=== PATIENT | female | born 1985 | race Caucasian/White ===

== ENCOUNTER 2020-12-23 04:38 | Emergency (ER) | payer MEDICAID, SELFPAY ==
--- NOTE | ~2020-12-23 | XR_ITS ---
EXAMINATION: XR CHEST CLINICAL INFORMATION: Chest pain COMPARISON: 05/04/2019 TECHNIQUE: Frontal view of the chest was obtained. FINDINGS: Lung volumes are symmetric. No focal consolidation is seen. No evidence of pneumothorax, pleural effusion, or pulmonary edema. The cardiomediastinal contour is unremarkable. No acute osseous findings are seen. XR/XR chest 1V IMPRESSION: No acute cardiopulmonary findings.
[2020-12-23 04:46] VITALS: BP 117/70; PULSE 75; RESP 16; TEMP 36.8; O2SAT 99; BMI 29.0
[2020-12-23 04:54] VITALS: PULSE 78
--- NOTE | 2020-12-23 04:56 | ECG_ITS ---
Test Reason : CHEST PAIN Blood Pressure : / mmHG Vent. Rate : 085 BPM Atrial Rate : 085 BPM P-R Int : 148 ms QRS Dur : 078 ms QT Int : 382 ms P-R-T Axes : 051 069 049 degrees QTc Int : 454 ms Normal sinus rhythm Normal ECG When compared to the previous EKG of No significant changes seen Referred By: Katherine Chandler Electronically Signed By:FRANCK QUINTERO MD
[2020-12-23 05:11] LABS: Basophils Percent Auto 0.2 % (0-2); Eosinophils Absolute Auto 0.2 X10*3/uL (0.0-0.4); Eosinophils Percent Auto 2.9 % (0-4); Hematocrit 37.5 % (37-47); Hemoglobin 13.2 g/dl (12.0-16.0); Imm Gran Abs Auto 0.02 X10*3/uL (0.00-0.03); Imm Gran Pct Auto 0.3 % (0.0-0.4); Lymphocytes Absolute Auto 1.9 X10*3/uL (1.2-4.9); Lymphocytes Percent Auto 31.8 % (20-40); MANUAL DIFF FLAG NO; Mean Corpuscular HGB Conc 35.2 g/dl (31.0-35.0); Mean Corpuscular Hemoglobin 30.9 pg (27.0-33.0); Mean Corpuscular Volume 87.8 fL (80-98); Mean Platelet Volume 10.5 fL (9.4-12.3); Monocytes Absolute Auto 0.7 X10*3/uL (0.1-1.2); Monocytes Percent Auto 11.8 % (2-11); Neutrophils Absolute Auto 3.1 X10*3/uL (2.0-8.3); Platelet Count 280 X10*3/uL (160-400); Red Blood Count 4.27 X10*6/uL (4.20-5.50); Red Cell Distribution Width 11.8 % (11.0-16.0); White Blood Count 5.9 X10*3/uL (4.8-10.8)
--- NOTE | 2020-12-23 05:14 | ED.CHESTPAIN ---
HPI - Chest Pain General Chief Complaint: Chest Pain Stated Complaint: chest pain Time Seen by Provider: 12/23/20 05:07 Source: patient Mode of arrival: ambulatory Limitations: no limitations History of Present Illness HPI narrative: Patient comes emergency room complaining of substernal chest pressure. Patient states at 19:00 she drank very concentrated coffee, states she has been shaky since then. Patient went to sleep and woke up around 1 in the morning with substernal pressure, nonradiating. Patient denies nausea vomiting and diarrhea, no shortness of breath. Related Data Allergies Allergy/AdvReac Type Severity Reaction Status Date / Time shellfish derived Allergy Severe ANAPHYLAXIS Unverified 04/25/20 18:38 [SHELLFISH DERIVED] seafood Allergy Unknown SOB, Uncoded 12/06/19 00:00 throat swelling Review of Systems Review of Systems: Constitutional : No Weight loss, No Fever, No Chills, No Night Sweats, No Fatigue, No Malaise, feeling jittery ENT/Mouth : No Hearing loss, No Ear Pain, No Nasal Congestion, No Sinus Pain, No Hoarseness, No sore throat, No Rhinorrhea, No Swallowing Difficulty Eyes: No Eye Pain, No Swelling, No Redness, No Foreign Body, No Discharge, No Vision Changes Cardiovascular : Complaining of substernal nonradiating chest pressure, No SOB, No Dyspnea on Exertion, No Orthopnea, No Edema, No Palpitations Respiratory : No Cough, No Sputum, No Wheezing, No Smoke Exposure, No Dyspnea Gastrointestinal : No Nausea, No Vomiting, No Diarrhea, No Constipation, No abdominal Pain, No Hematochezia, No Melena Genitourinary : no irregular bleeding, No Dysuria, No Urinary Frequency, No Hematuria, No Urinary Incontinence, No Urgency, No Flank Pain, No Urinary Flow Changes, No Hesitancy Musculoskeletal : No joint pain, No Myalgias, No Joint Swelling Skin : No Skin Lesions, No rash Neuro : No Weakness, No Numbness, No Paresthesias, No Loss of Consciousness, No Dizziness, No Headache Psych : No Anxiety/Panic, No Depression, No SI/HI/AH/VH, No Social Issues, Heme/Lymph: No Bruising, No Bleeding,No Lymphadenopathy Endocrine : No Polyuria, No Polydipsia, No Temperature Intolerance PMFSH Past Medical History Medical History (Updated 12/23/20 @ 05:44 by Katherine Chandler MD) Asthma Social History Social History Alcohol intake: never Smoking Status: Never smoker Use of substances other than those prescribed or required for medical reasons: No Advance Directives: No Advance Directives Information Provided: No Patient : No Physical Exam Vital Signs: Vital Signs: Last Vital Signs Temp 98.3 F 12/23/20 04:46 Pulse 75 12/23/20 04:46 Resp 16 12/23/20 04:46 BP 117/70 12/23/20 04:46 Pulse Ox 99 12/23/20 04:46 Body Mass Index 29.0 Appearance: Alert. Oriented X3. No acute distress. Eyes: Pupils equal, round and reactive to light. ENT: Pharynx normal. Neck: Normal inspection. Neck supple. No lymph nodes noted. No crepitus CVS: Normal heart rate and rhythm. Pulses normal. Normal S1 and S2, reproducible chest pain on palpation on the suprasternal border. Respiratory: No respiratory distress. Breath sounds normal. No Wheezing. No rales Abdomen: Soft and nontender. No rigidity. No distention. good BS x4 Skin: Skin warm and dry. Normal skin color. Normal skin turgor. Extremities: No lower extremity edema. No lower extremity edema. No Lacerations. No Rash Neuro: Oriented X 3. No motor deficit. No sensory deficit. Moving all extermities. No slurred speech. Course Course Course Narrative: I discussed with the patient her symptoms and likely secondary to the high dose of caffeine she used. Chest x-ray within normal limits, EKG normal troponin negative. MDM - Chest Pain Lab Data Result diagrams: 12/23/20 05:06 12/23/20 05:06 Labs: Lab Results 12/23/20 12/23/20 12/23/20 Range/Units 05:06 05:06 05:06 WBC 5.9 (4.8-10.8) X10*3/uL RBC 4.27 (4.20-5.50) X10*6/uL Hgb 13.2 (12.0-16.0) g/dl Hct 37.5 (37-47) % MCV 87.8 (80-98) fL MCH 30.9 (27.0-33.0) pg MCHC 35.2 H (31.0-35.0) g/dl RDW 11.8 (11.0-16.0) % Plt Count 280 (160-400) X10*3/uL MPV 10.5 (9.4-12.3) fL Immature Gran % (Auto) 0.3 (0.0-0.4) % Neut % (Auto) 53.0 (45-73) % Lymph % (Auto) 31.8 (20-40) % [place] % (Auto) 11.8 H (2-11) % Eos % (Auto) 2.9 (0-4) % Baso % (Auto) 0.2 (0-2) % Lymph # (Auto) 1.9 (1.2-4.9) X10*3/uL [place] # (Auto) 0.7 (0.1-1.2) X10*3/uL Eos # (Auto) 0.2 (0.0-0.4) X10*3/uL Baso # (Auto) 0.0 (0.0-0.2) X10*3/uL Abs Immat Gran (auto) 0.02 (0.00-0.03) X10*3/uL Absolute Neuts (auto) 3.1 (2.0-8.3) X10*3/uL Absolute Nucleated RBC 0.000 (0.0-0.012) X10*3/uL Nucleated RBC % (auto) 0.0 (0.0-0.2) /100WBC Hold Blue Top SEE NOTE Sodium 137 (135-145) mmol/L Potassium 4.5 (3.3-5.1) mmol/L Chloride 104 (96-108) mmol/L Carbon Dioxide 26 (22-29) mmol/L Anion Gap 12 (12-20) BUN 7 L (9-16) mg/dL Creatinine 0.72 (0.5-1.4) mg/dL Estim Creat Clear Calc 99.4 Estimated GFR > 60 Random Glucose 104 (60-115) mg/dL Calcium 9.2 (8.4-10.2) mg/dL Troponin I High Sens (<3.5-17.0) ng/L 12/23/20 Range/Units 05:06 WBC (4.8-10.8) X10*3/uL RBC (4.20-5.50) X10*6/uL Hgb (12.0-16.0) g/dl Hct (37-47) % MCV (80-98) fL MCH (27.0-33.0) pg MCHC (31.0-35.0) g/dl RDW (11.0-16.0) % Plt Count (160-400) X10*3/uL MPV (9.4-12.3) fL Immature Gran % (Auto) (0.0-0.4) % Neut % (Auto) (45-73) % Lymph % (Auto) (20-40) % [place] % (Auto) (2-11) % Eos % (Auto) (0-4) % Baso % (Auto) (0-2) % Lymph # (Auto) (1.2-4.9) X10*3/uL [place] # (Auto) (0.1-1.2) X10*3/uL Eos # (Auto) (0.0-0.4) X10*3/uL Baso # (Auto) (0.0-0.2) X10*3/uL Abs Immat Gran (auto) (0.00-0.03) X10*3/uL Absolute Neuts (auto) (2.0-8.3) X10*3/uL Absolute Nucleated RBC (0.0-0.012) X10*3/uL Nucleated RBC % (auto) (0.0-0.2) /100WBC Hold Blue Top Sodium (135-145) mmol/L Potassium (3.3-5.1) mmol/L Chloride (96-108) mmol/L Carbon Dioxide (22-29) mmol/L Anion Gap (12-20) BUN (9-16) mg/dL Creatinine (0.5-1.4) mg/dL Estim Creat Clear Calc Estimated GFR Random Glucose (60-115) mg/dL Calcium (8.4-10.2) mg/dL Troponin I High Sens < 3.5 (<3.5-17.0) ng/L Imaging Data Chest x-ray: Radiologist's impression: FINDINGS: Lung volumes are symmetric. No focal consolidation is seen. No evidence of pneumothorax, pleural effusion, or pulmonary edema. The cardiomediastinal contour is unremarkable. No acute osseous findings are seen. XR/XR chest 1V IMPRESSION: No acute cardiopulmonary findings. ECG Data ECG #1: Attestation: I personally reviewed and interpreted this ECG as follows: (Sinus rhythm 85, no ST segment depression or elevation, no T-wave inversion, QTC 454) Scores Heart Score History: -0- slightly suspicious ECG: -0- normal Age: -0- < or = 45 Risk factory: -0- no risk factors known Troponin: -0- < or = normal limit Score: 0 Risk: 1.7% Discharge Plan Discharge Clinical Impression: Atypical chest pain Patient Disposition: Home, Self-Care Instructions: Chest Pain (ED) Additional Instructions: Please follow-up with your primary care physician tomorrow. If you have any worsening or new symptoms, please return to the emergency room or call 911
[2020-12-23 05:30] LABS: Anion Gap 12 (12-20); Blood Urea Nitrogen 7 mg/dL (9-16); Calcium 9.2 mg/dL (8.4-10.2); Carbon Dioxide 26 mmol/L (22-29); Chloride 104 mmol/L (96-108); Creatinine Clr Calc Pharmacy 99.4; Estimated Glomerular Filt Rate > 60; Glucose Random 104 mg/dL (60-115); Potassium 4.5 mmol/L (3.3-5.1); Sodium 137 mmol/L (135-145)
[2020-12-23 05:34] LABS: Troponin-I High Sensitivity < 3.5 ng/L (<3.5-17.0)
[2020-12-23] MEDS: Aspirin Enteric Coated 325 MG TABLET.DR PO (05:43)
== END 2020-12-23 05:49 | disposition home or self-care (01) ==
PROVIDERS: Emergency Provider Emergency Medicine; PCP Family Medicine
DX: R07.89 Other chest pain (principal)
CPT/HCPCS: 36415; 71045; 80048; 84484; 85025; 93005; 99284

== ENCOUNTER 2021-01-08 19:52 | Emergency (ER) | payer MEDICAID, SELFPAY ==
[2021-01-08 21:04] VITALS: BP 108/65; PULSE 71; RESP 16; TEMP 36.9; O2SAT 100; BMI 26.0
--- NOTE | 2021-01-08 22:46 | ED.SKABFB ---
HPI - Skin/Abscess/Foreign Bdy General Chief complaint: Allergic Reaction Stated complaint: hand swelling Time Seen by Provider: 01/08/21 22:44 Source: patient and family Limitations: language barrier (Daughter translated) History of Present Illness HPI narrative: Patient is a 35-year-old Ivorian-speaking female with no significant past medical history who presents with pain and redness on her left hand. She states she has filled acrylic nail solution on it earlier today and it has become painful and swollen. She states she washed it right away but it still hurts. She says is happen once a few years ago and she thought she was allergic to the solutions so she did not use it for a few years and then used it again today and had a similar reaction. She denies any throat tingling, shortness of breath or difficulty breathing. Related Data Allergies Allergy/AdvReac Type Severity Reaction Status Date / Time shellfish derived Allergy Severe ANAPHYLAXIS Verified 01/08/21 21:07 [SHELLFISH DERIVED] seafood Allergy Unknown SOB, Uncoded 01/08/21 21:07 throat swelling Review of Systems Review of Systems: Yes all other systems are reviewed and are negative PENDING SALE TO [facility] Past Medical History Medical History Asthma Social History Social History Alcohol intake: never Advance Directives: No Advance Directives Information Provided: Yes Physical Exam Vital Signs: Vital Signs: Last Vital Signs Temp 98.4 F 01/08/21 21:04 Pulse 71 01/08/21 21:04 Resp 16 01/08/21 21:04 BP 108/65 01/08/21 21:04 Pulse Ox 100 01/08/21 21:04 Body Mass Index 26.0 Const: General: cooperative, healthy appearing, comfortable and no acute distress Nutritional Appearance: average body habitus Orientation/consciousness: patient oriented x3 Eyes: General: appearance normal, both eyes and all related structures Skin: Other: Right hand, volar and ulnar side is erythematous, slightly swollen, not warm, no signs of infection. Patient is NVI to the 5th digit, full ROM. No ecchymosis. Neuro: General: patient oriented x3 Course Course Course Narrative: Discussed with Dr. barba, she recommended Vaseline, keep clean and follow up with PCP. Applied Vaseline and dressed wound for patient, gave her supplies to keep it covered when there is Vaseline on it. Answered all of patient's questions. Discharge Plan Discharge Clinical Impression: Chemical burn Patient Disposition: Home, Self-Care Instructions: Chemical Skin Burn (ED) Additional Instructions: Please keep the area clean, use Vaseline to keep the area moist, you can take Advil for the pain. Please be sure to follow-up your PCP next week. Print Language: Ivorian
== END 2021-01-08 23:00 | disposition home or self-care (01) ==
PROVIDERS: Emergency Provider Student in an Organized Health Care Education/Training Program; PCP Family Medicine
DX: T65.891A Toxic effect of other specified substances, accidental (unintentional), initial encounter (principal); T23.59 Corrosion of first degree of multiple sites of wrist and hand; T32.0 Corrosions involving less than 10% of body surface; Y93.E8 Activity, other personal hygiene; Y92.039 Unspecified place in apartment as the place of occurrence of the external cause; Y99.9 Unspecified external cause status
CPT/HCPCS: 99283

== ENCOUNTER 2021-11-03 09:39 | Emergency (ER) | payer MEDICAID, SELFPAY ==
[2021-11-03 10:23] VITALS: BP 124/77; PULSE 82; RESP 19; TEMP 36.8; O2SAT 100
[2021-11-03 10:51] VITALS: BMI 24.5
--- NOTE | 2021-11-03 11:03 | ECG_ITS ---
Test Reason : dizziness Blood Pressure : / mmHG Vent. Rate : 077 BPM Atrial Rate : 077 BPM P-R Int : 150 ms QRS Dur : 078 ms QT Int : 394 ms P-R-T Axes : 009 -01 020 degrees QTc Int : 445 ms Normal sinus rhythm Normal ECG When compared with ECG of 23-DEC-2020 04:42, Questionable change in QRS axis Referred By: Generic ED Physician Electronically Signed By:KIRSTIN WILLIAMSON
--- NOTE | 2021-11-03 11:37 | ED_ITS ---
HPI - General Adult General Chief complaint: Dizziness Stated complaint: headache shakes Time Seen by Provider: 11/03/21 10:38 Source: patient Mode of arrival: ambulatory Limitations: no limitations History of Present Illness HPI narrative: Patient comes to the emergency room complaining of a near syncopal episode. Earlier this morning, patient was working at [email or web address]. Patient states that she had a sudden episode all lightheadedness, feeling that she was going to pass out, states that she had a sensation that the back of her head was shaking. Patient denies headache, no loss of consciousness. Patient states that this episode lasted for about 2 minutes and then self-resolved. Related Data Allergies Allergy/AdvReac Type Severity Reaction Status Date / Time shellfish derived Allergy Severe ANAPHYLAXIS Verified 01/08/21 21:07 [SHELLFISH DERIVED] seafood Allergy Unknown SOB, Uncoded 01/08/21 21:07 throat swelling Review of Systems Review of Systems: Constitutional : No Weight loss, No Fever, No Chills, No Night Sweats, No Fatigue, No Malaise ENT/Mouth : No Hearing loss, No Ear Pain, No Nasal Congestion, No Sinus Pain, No Hoarseness, No sore throat, No Rhinorrhea, No Swallowing Difficulty Eyes: No Eye Pain, No Swelling, No Redness, No Foreign Body, No Discharge, No Vision Changes Cardiovascular : No Chest Pain, No SOB, No Dyspnea on Exertion, No Orthopnea, No Edema, No Palpitations Respiratory : No Cough, No Sputum, No Wheezing, No Smoke Exposure, No Dyspnea Gastrointestinal : No Nausea, No Vomiting, No Diarrhea, No Constipation, No abdominal Pain, No Hematochezia, No Melena Genitourinary : no irregular bleeding, No Dysuria, No Urinary Frequency, No Hematuria, No Urinary Incontinence, No Urgency, No Flank Pain, No Urinary Flow Changes, No Hesitancy Musculoskeletal : No joint pain, No Myalgias, No Joint Swelling Skin : No Skin Lesions, No rash Neuro : No Weakness, No Numbness, No Paresthesias, complaining of near syncopal episode, shaky sensation in the back of the head Psych : No Anxiety/Panic, No Depression, No SI/HI/AH/VH, No Social Issues, Heme/Lymph: No Bruising, No Bleeding,No Lymphadenopathy Endocrine : No Polyuria, No Polydipsia, No Temperature Intolerance PMFSH Past Medical History Medical History Asthma Social History Social History Alcohol intake: never Advance Directives: No Advance Directives Information Provided: No Physical Exam ED Vital Signs: Vital Signs - 24 hr 11/03/21 10:23 11/03/21 11:59 11/03/21 12:00 Temperature 98.3 F Pulse Rate 82 72 77 Respiratory Rate 19 Blood Pressure 124/77 108/68 106/66 Pulse Oximetry 100 11/03/21 12:01 11/03/21 12:02 Temperature 99.0 F Pulse Rate 74 73 Respiratory Rate 12 Blood Pressure 110/68 111/61 Pulse Oximetry BMI result Body Mass Index 24.5 Const Other: Appearance: Alert. Oriented X3. No acute distress. Eyes: Pupils equal, round and reactive to light. ENT: Pharynx normal. Neck: Normal inspection. Neck supple. No lymph nodes noted. No crepitus CVS: Normal heart rate and rhythm. Pulses normal. Normal S1 and S2 Respiratory: No respiratory distress. Breath sounds normal. No Wheezing. No rales Abdomen: Soft and nontender. No rigidity. No distention. Skin: Skin warm and dry. Normal skin color. Normal skin turgor. Extremities: No lower extremity edema. No Lacerations. No Rash Neuro: Oriented X 3. No motor deficit. No sensory deficit. Moving all extremities. No slurred speech. CN 2 through 12 grossly intact Psych: calm, cooperative, normal affect Course Course Course Narrative: Patient's physical exam is normal, vitals stable. At this time, patient does not need any immediate treatment. Labs and EKG pending. I discussed the labs with the patient, EKG within normal limits, orthostatic vitals negative. test negative. Patient is ambulatory, walking within normal limits Patient instructed to follow-up with her primary care physician. If patient keeps having similar symptoms, she may benefit from a Holter monitor evaluation Medical Decision Making Lab Data Result diagrams: 11/03/21 11:45 11/03/21 11:45 Labs: Lab Results 11/03/21 11/03/21 11/03/21 Range/Units 11:45 11:45 11:45 WBC 8.7 (4.8-10.8) X10*3/uL RBC 4.18 L (4.20-5.50) X10*6/uL Hgb 12.9 (12.0-16.0) g/dl Hct 36.5 L (37.0-47.0) % MCV 87.3 (80.0-98.0) fL MCH 30.9 (27.0-33.0) pg MCHC 35.3 H (31.0-35.0) g/dl RDW 11.8 (11.0-16.0) % Plt Count 296 (160-400) X10*3/uL MPV 10.4 (9.4-12.3) fL Immature Gran % (Auto) 0.3 (0.0-0.4) % Neut % (Auto) 57.6 (45-73) % Lymph % (Auto) 29.4 (20-40) % [place] % (Auto) 9.6 (2-11) % Eos % (Auto) 2.9 (0-4) % Baso % (Auto) 0.2 (0-2) % Lymph # (Auto) 2.6 (1.2-4.9) X10*3/uL [place] # (Auto) 0.8 (0.1-1.2) X10*3/uL Eos # (Auto) 0.3 (0.0-0.4) X10*3/uL Baso # (Auto) 0.0 (0.0-0.2) X10*3/uL Abs Immat Gran (auto) 0.03 (0.00-0.03) X10*3/uL Absolute Neuts (auto) 5.0 (2.0-8.3) x10*3/uL Absolute Nucleated RBC 0.000 (0.0-0.012) X10*3/uL Nucleated RBC % (auto) 0.0 (0.0-0.2) /100WBC Sodium 138 (135-145) mmol/L Potassium 3.8 (3.3-5.1) mmol/L Chloride 105 (96-108) mmol/L Carbon Dioxide 26 (22-29) mmol/L Anion Gap 11 L (12-20) BUN 8 L (9-16) mg/dL Creatinine 0.66 (0.5-1.4) mg/dL Estim Creat Clear Calc 95.3 Estimated GFR > 60 Random Glucose 90 (60-115) mg/dL Calcium 9.3 (8.4-10.2) mg/dL Troponin I High Sens 3.5 (<3.5-17.0) ng/L Urine Color Urine Appearance Urine pH (5.0-8.0) Ur Specific [place] (1.005-1.025) Urine Protein (NEG-TRACE) MG/DL Urine Glucose (UA) (NEG) MG/DL Urine Ketones (NEG) MG/DL Urine Blood (NEG) Urine Nitrite (NEG) Ur Leukocyte Esterase (NEG) Urine Test (NEGATIVE) 11/03/21 11/03/21 Range/Units 11:49 11:49 WBC (4.8-10.8) X10*3/uL RBC (4.20-5.50) X10*6/uL Hgb (12.0-16.0) g/dl Hct (37.0-47.0) % MCV (80.0-98.0) fL MCH (27.0-33.0) pg MCHC (31.0-35.0) g/dl RDW (11.0-16.0) % Plt Count (160-400) X10*3/uL MPV (9.4-12.3) fL Immature Gran % (Auto) (0.0-0.4) % Neut % (Auto) (45-73) % Lymph % (Auto) (20-40) % [place] % (Auto) (2-11) % Eos % (Auto) (0-4) % Baso % (Auto) (0-2) % Lymph # (Auto) (1.2-4.9) X10*3/uL [place] # (Auto) (0.1-1.2) X10*3/uL Eos # (Auto) (0.0-0.4) X10*3/uL Baso # (Auto) (0.0-0.2) X10*3/uL Abs Immat Gran (auto) (0.00-0.03) X10*3/uL Absolute Neuts (auto) (2.0-8.3) x10*3/uL Absolute Nucleated RBC (0.0-0.012) X10*3/uL Nucleated RBC % (auto) (0.0-0.2) /100WBC Sodium (135-145) mmol/L Potassium (3.3-5.1) mmol/L Chloride (96-108) mmol/L Carbon Dioxide (22-29) mmol/L Anion Gap (12-20) BUN (9-16) mg/dL Creatinine (0.5-1.4) mg/dL Estim Creat Clear Calc Estimated GFR Random Glucose (60-115) mg/dL Calcium (8.4-10.2) mg/dL Troponin I High Sens (<3.5-17.0) ng/L Urine Color STRAW Urine Appearance CLEAR Urine pH 5.5 (5.0-8.0) Ur Specific [place] <= 1.005 (1.005-1.025) Urine Protein NEG (NEG-TRACE) MG/DL Urine Glucose (UA) NEG (NEG) MG/DL Urine Ketones NEG (NEG) MG/DL Urine Blood NEG (NEG) Urine Nitrite NEG (NEG) Ur Leukocyte Esterase NEG (NEG) Urine Test NEGATIVE (NEGATIVE) Discharge Plan Discharge Clinical Impression: Near syncope Patient Disposition: Home, Self-Care Instructions: Near Syncope (ED) Additional Instructions: Please follow-up with your primary care physician tomorrow. If you have any worsening or new symptoms, please return to the emergency room or call 911 Stand Alone Forms: Work/School Release
[2021-11-03 11:59] VITALS: BP 108/68; PULSE 72
[2021-11-03 11:59] LABS: MANUAL DIFF FLAG NO
[2021-11-03 12:00] VITALS: BP 106/66; PULSE 77
[2021-11-03 12:01] VITALS: BP 110/68; PULSE 74
[2021-11-03 12:01] LABS: Basophils Percent Auto 0.2 % (0-2); Eosinophils Absolute Auto 0.3 X10*3/uL (0.0-0.4); Eosinophils Percent Auto 2.9 % (0-4); Hematocrit 36.5 % (37.0-47.0); Hemoglobin 12.9 g/dl (12.0-16.0); Imm Gran Abs Auto 0.03 X10*3/uL (0.00-0.03); Imm Gran Pct Auto 0.3 % (0.0-0.4); Lymphocytes Absolute Auto 2.6 X10*3/uL (1.2-4.9); Lymphocytes Percent Auto 29.4 % (20-40); Mean Corpuscular HGB Conc 35.3 g/dl (31.0-35.0); Mean Corpuscular Hemoglobin 30.9 pg (27.0-33.0); Mean Corpuscular Volume 87.3 fL (80.0-98.0); Mean Platelet Volume 10.4 fL (9.4-12.3); Monocytes Absolute Auto 0.8 X10*3/uL (0.1-1.2); Monocytes Percent Auto 9.6 % (2-11); Neutrophils Percent Auto 57.6 % (45-73); Platelet Count 296 X10*3/uL (160-400); Red Blood Count 4.18 X10*6/uL (4.20-5.50); Red Cell Distribution Width 11.8 % (11.0-16.0); White Blood Count 8.7 X10*3/uL (4.8-10.8)
[2021-11-03 12:02] VITALS: BP 111/61; PULSE 73; RESP 12; TEMP 37.2
[2021-11-03 12:08] LABS: Appearance Urine CLEAR; Color Urine STRAW; Glucose Urine UA NEG (NEG); Leukocyte Esterase Urine NEG (NEG); Nitrite Urine NEG (NEG); PH 5.5 (5.0-8.0); Specific Gravity - Urine <= 1.005 (1.005-1.025); UPreg QC Valid YES; Urine Blood NEG (NEG); Urine Ketones NEG (NEG); Urine Pregnancy NEGATIVE (NEGATIVE); Urine Protein NEG (NEG-TRACE)
[2021-11-03 12:15] LABS: Anion Gap 11 (12-20); Blood Urea Nitrogen 8 mg/dL (9-16); Calcium 9.3 mg/dL (8.4-10.2); Carbon Dioxide 26 mmol/L (22-29); Chloride 105 mmol/L (96-108); Creatinine Clr Calc Pharmacy 95.3; Estimated Glomerular Filt Rate > 60; Glucose Random 90 mg/dL (60-115); Potassium 3.8 mmol/L (3.3-5.1); Sodium 138 mmol/L (135-145)
[2021-11-03 12:21] LABS: Troponin-I High Sensitivity 3.5 ng/L (<3.5-17.0)
== END 2021-11-03 12:52 | disposition home or self-care (01) ==
PROVIDERS: Emergency Provider Emergency Medicine; PCP Family Medicine
DX: R55 Syncope and collapse (principal)
CPT/HCPCS: 36415; 80048; 81003; 81025; 84484; 85025; 93005; 99283; 99285

== ENCOUNTER 2022-11-13 06:40 | Emergency (ER) | payer MEDICAID, SELFPAY ==
[2022-11-13 06:47] VITALS: BP 93/56; PULSE 80; RESP 14; TEMP 36.4; O2SAT 100; BMI 24.5
[2022-11-13 08:10] VITALS: BP 113/74; PULSE 84; RESP 13; TEMP 36.9; O2SAT 98
--- NOTE | 2022-11-13 09:20 | ED.WOUNDLAC ---
HPI - Wound/Laceration General Chief Complaint: Wound/Laceration Stated Complaint: laceration Time Seen by Provider: 11/13/22 09:06 Source: patient and family Mode of arrival: ambulatory Limitations: language barrier History of Present Illness HPI narrative: 37-year-old female with no sig PMHx presents to the ED c/o laceration to the left index finger s/p cutting fruit with knife around 6AM. Last tetanus unknown. Reports mild paresthesias. Denies loss of sensation, numbness, decreased ROM, fever, chills, SOB, chest pain, or LOC. Onset (ago): hour(s) Related Data Allergies Allergy/AdvReac Type Severity Reaction Status Date / Time shellfish derived Allergy Severe ANAPHYLAXIS Verified 11/13/22 06:47 [SHELLFISH DERIVED] seafood Allergy Unknown SOB, Uncoded 11/13/22 06:47 throat swelling Review of Systems Review of Systems: Constitutional: No Fever, No Chills ENT/Mouth: No Nasal Congestion, No sore throat, No Rhinorrhea, No Swallowing Difficulty Cardiovascular: No Chest Pain, No SOB Respiratory: No Cough, Gastrointestinal: No Nausea, No Vomiting, No Diarrhea, No Constipation, No Abdominal pain Musculoskeletal: + joint pain, No Myalgias, No Joint Swelling Skin: + laceration to the left index finger. No rash Neuro: No Weakness, No Numbness, + Paresthesias to the left index finger Yes all other systems are reviewed and are negative Constitutional: Constitutional: Reports as per HPI [facility], [facility] Past Medical History Attestation statement: The following information was validated with the patient. Medical History Asthma Social History Social History Alcohol intake: never Advance Directives: No Advance Directives Information Provided: Yes Physical Exam Vital Signs: Vital Signs: Last Vital Signs Temp 98.4 F 11/13/22 08:10 Pulse 84 11/13/22 08:10 Resp 13 11/13/22 08:10 BP 113/74 11/13/22 08:10 Pulse Ox 98 11/13/22 08:10 O2 Del Method Room Air 11/13/22 08:10 BMI result Body Mass Index 24.5 Const: General: cooperative, healthy appearing and no acute distress Orientation/consciousness: patient oriented x3 Limitations: no limitations HEENT: Head: Yes normal to inspection and Yes atraumatic Ears: hearing grossly normal bilaterally General nose exam: Normal external nose present Face and sinus: Yes normal facial exam Eyes: General: appearance normal, both eyes and all related structures EOM: EOMs intact bilaterally Neck: Neck: Yes normal visual inspection and Yes no meningeal signs Resp: Effort & Inspection: normal respiratory effort and no respiratory distress Cardio: Rate: regular rate Heart sounds: S1 normal heart sound present and S2 normal heart sound present Peripheral pulses: radial pulses present and ulnar radial pulses present Skin: Other: 2.5 cm superficial laceration noted to volar aspect of left index finger proximal to PIP. Bleeding controlled. No drainage. No fluctuance/induration. Underlying structures appear intact. FROM intact General skin exam: elasticity normal, no atrophy and no pallor Rashes: no rashes Trauma: laceration Neuro: General: patient oriented x3, tone normal, moves all extremities and no meningeal signs Gait exam (Neuro): Normal gait present Extrem: Other: Full ROM of the left index finger, capillary refill < 2 seconds. General: Yes full ROM and Yes capillary refill normal Left upper extremity: normal to inspection; no cyanosis Medications Administered Discontinued Medications Generic Name Dose Route Start Last Admin Trade Name Freq PRN Reason Stop Dose Admin Diphtheria/Tetanus/Acell Pertussis 0.5 ml 11/13/22 09:19 11/13/22 09:36 Diphth,Pertus(Acell),Tet Adult 0.5 Ml Syringe IM 11/13/22 09:20 0.5 ml .ONCE ONE Administration Lidocaine HCl 5 ml 11/13/22 09:19 11/13/22 09:36 Lidocaine Hcl 1 % Mpf 5 Ml Vial INFILTRATI 11/13/22 09:20 5 ml ONCE ONE Administration Medical Decision Making Medical Decision Making MDM Narrative: 37-year-old female with no sig PMHx presents to the ED c/o laceration to the left index finger s/p cutting fruit with knife around 6AM. On exam vital signs stable, physical exam as above with laceration noted to finger. Full range of motion and neurovascularly intact. Will update tetanus and repair wound Please refer to course for remaining clinical decision making, interpretation of labs/imaging results, and discussions with consultants and/or family members. Differential Diagnosis Differential Diagnoses: The differential diagnosis associated with the presentation includes As above Admission/Observation Consideration of admission/observation: Escalation of care including admission/observation considered Lab Data MDM Lab Attestation statement: I reviewed the patient's lab results. Radiology Impression Discussion of test interpretation with radiology: I have reviewed the radiologist's reading. External Record Review External record reviewed: Inpatient record, Office record, Outpatient record, Prior outpatient labs, Prior outpatient radiology, Primary care record and Outside ED record Procedures Laceration Laceration 1: Description: flap and irregular Depth: simple, single layer Local Anesthetic: lidocaine 1% Amount of anesthesia used (mL): 3 Pre-repair: wound explored Skin layer closed with: nylon Size (cm): 4-0 Number of sutures: 6 Technique: simple, interrupted Discharge Plan Discharge Clinical Impression: Finger laceration Patient Disposition: Home, Self-Care Instructions: Finger Laceration (ED) Additional Instructions: Your wounds were repaired today in the emergency department. Keep dry and clean. You need to return to any emergency department, urgent care, or your PCPs office in 7-10 days for suture removal Apply bacitracin and or Neosporin daily Once sutures are removed apply anti scar cream like Mederma If area begins look infected, is red, there is drainage, streaking, or you have fever please return to the emergency department Tus heridas fueron reparadas hoy en el departamento de emergencias. Mant?ngase seco y limpio. Debe regresar a cualquier departamento de emergencias, atenci?n de urgencia o al consultorio de [facility] PCP en 7 a 10 d?as para que le quiten las suturas. Aplique bacitracina y/o Neosporin diariamente Amada vez que se retiran las suturas, aplique amada crema anticicatrices jolie Mederma. Si el ?colby comienza a lucir infectada, est? ronal, hay citlallinaje, cassi o tiene diego, regrese al departamento de emergencias. Referrals: ED Physician,Generic [Physician] - 1 week (For suture removal) Kathya Restrepo DO [Primary Care Provider] - Stand Alone Forms: Work/School Release Interventions: ED Discharge Assessment Last Done: 11/13/22 10:53 Discharge Date/Time: 11/13/22 10:54
[2022-11-13] MEDS: Lidocaine HCl 1 % MPF 5 ML VIAL INFILTRATI (09:36)
[2022-11-13] MEDS: Diphth,Pertus(ACell),Tet Adult 0.5 ML SYRINGE IM (09:36)
== END 2022-11-13 10:54 | disposition home or self-care (01) ==
PROVIDERS: Emergency Provider Internal Medicine; PCP Family Medicine
DX: S61.211A Laceration without foreign body of left index finger without damage to nail, initial encounter (principal); S60.512A Abrasion of left hand, initial encounter; W26.8XXA Contact with other sharp object(s), not elsewhere classified, initial encounter; Y93.9 Activity, unspecified; Y92.000 Kitchen of unspecified non-institutional (private) residence as the place of occurrence of the external cause; Y99.9 Unspecified external cause status; Z23 Encounter for immunization
CPT/HCPCS: 90471; 90715; 99284

== ENCOUNTER → 2022-11-16 10:55 | Outpatient (BNVA) | payer OTHER, SELFPAY | PROVIDERS: PCP Family Medicine; Visit Provider Physician Assistant Medical | DX: S61.211A Laceration without foreign body of left index finger without damage to nail, initial encounter (principal); W26.8XXA Contact with other sharp object(s), not elsewhere classified, initial encounter; Z48.02 Encounter for removal of sutures | CPT/HCPCS: 99203 ==

== ENCOUNTER → 2022-11-20 09:22 | Outpatient (BNVA) | payer OTHER, SELFPAY | PROVIDERS: PCP Family Medicine; Visit Provider Physician Assistant | DX: S61.211A Laceration without foreign body of left index finger without damage to nail, initial encounter (principal); W26.8XXA Contact with other sharp object(s), not elsewhere classified, initial encounter | CPT/HCPCS: 99212; 99213 ==

== ENCOUNTER → 2022-11-24 09:33 | Outpatient (BNVA) | payer OTHER, SELFPAY | PROVIDERS: PCP Family Medicine; Visit Provider Physician Assistant Medical | DX: S61.211A Laceration without foreign body of left index finger without damage to nail, initial encounter (principal); W26.8XXA Contact with other sharp object(s), not elsewhere classified, initial encounter | CPT/HCPCS: 99213 ==